=== PATIENT | female | born 1990 | race Caucasian/White ===

== ENCOUNTER 2018-09-29 13:18 | Emergency (ER) | payer MEDICAID ==
[2018-09-29 13:29] VITALS: BP 134/83; PULSE 67; RESP 18; TEMP 98.7
[2018-09-29] MEDS ORDERED: METOCLOPRAMIDE 5 MG/ML 2 ML VIAL IM PRN (13:55)
--- NOTE | 2018-09-29 14:14 | ED ---
General Adult HPI - General Chief complaint: Nausea/Vomiting/Diarrhea Stated complaint: nausea Time Seen by Provider: 09/29/18 13:25 Source: patient, RN notes reviewed Mode of arrival: ambulatory Limitations: no limitations - History of Present Illness Initial comments: This is a 28-year-old female who comes in complaining of nausea and vomiting. Patient states the vomiting stopped after patient states the nausea and vomiting started 1 week ago after about 3 days the nausea continued but the vomiting stopped. Patient denies any diarrhea. Patient denies any abdominal pain. Patient states she has a little bit of left lower back pain but not much. Patient states that she did start clindamycin the day after her vomiting started and wonders if the clindamycin is making her nauseous. Patient denies any fever or chills. Patient denies any chest pain difficulty breathing shortness of breath. - Related Data Home Medications Medication Instructions Recorded Confirmed Cetirizine HCl [Zyrtec] 10 mg PO DAILY 09/29/18 09/29/18 Clindamycin HCl 300 mg PO TID 09/29/18 09/29/18 Fluticasone Nasal [place] [Flonase 2 spr EA NOSTRIL DAILY PRN 09/29/18 09/29/18 Nasal [place]] Naproxen 500 mg PO Q12H PRN 09/29/18 09/29/18 Ondansetron HCl [Zofran] 8 mg PO Q8H PRN 09/29/18 09/29/18 Allergies Allergy/AdvReac Type Severity Reaction Status Date / Time No Known Allergies Allergy Verified 09/29/18 13:48 Review of Systems ROS Statement: Those systems with pertinent positive or pertinent negative responses have been documented in the HPI. ROS Other: All systems not noted in ROS Statement are negative. Past Medical History Past Medical History: No Reported History History of Any Multi-Drug Resistant Organisms: None Reported Past Surgical History: No Surgical Hx Reported Past Psychological History: No Psychological Hx Reported Smoking Status: Never smoker Past Alcohol Use History: None Reported Past Drug Use History: None Reported General Exam - General Exam Comments Initial Comments: GENERAL: Patient is well-developed and well-nourished. Patient is nontoxic and well- hydrated and is in mild distress. ENT: Neck is soft and supple. No significant lymphadenopathy is noted. Oropharynx is clear. Moist mucous membranes. Neck has full range of motion without eliciting any pain. EYES: The sclera were anicteric and conjunctiva were pink and moist. Extraocular movements were intact and pupils were equal round and reactive to light. Eyelids were unremarkable. PULMONARY: Unlabored respirations. Good breath sounds bilaterally. No audible rales rhonchi or wheezing was noted. CARDIOVASCULAR: There is a regular rate and rhythm without any murmurs gallops or rubs. ABDOMEN: Soft and nontender with normal bowel sounds. SKIN: Skin is clear with no lesions or rashes and otherwise unremarkable. NEUROLOGIC: Patient is alert and oriented x3. Cranial nerves II through XII are grossly intact. Motor and sensory are also intact. Normal speech, volume and content. Symmetrical smile. MUSCULOSKELETAL: Normal extremities with adequate strength and full range of motion. LYMPHATICS: No significant lymphadenopathy is noted PSYCHIATRIC: Normal psychiatric evaluation. Limitations: no limitations Course Vital Signs 09/29/18 13:25 Temperature 98.7 F Pulse Rate 67 Respiratory 18 Rate Blood Pressure 134/83 O2 Sat by Pulse 98 Oximetry Medical Decision Making - Medical Decision Making I will back into room to reevaluate the patient she stated that she did not want the nausea shocked is currently she is not that nauseous and she took a Zofran before she came. Patient has continued to be pain-free. - Lab Data Lab Results 09/29/18 09/29/18 Range/Units 14:04 14:04 Urine Color Light Yellow Urine Appearance Clear (Clear) Urine pH 7.5 (5.0-8.0) Ur Specific [place] 1.008 (1.001-1.035) Urine Protein Negative (Negative) Urine Glucose (UA) Negative (Negative) Urine Ketones Negative (Negative) Urine Blood Trace H (Negative) Urine Nitrite Negative (Negative) Urine Bilirubin Negative (Negative) Urine Urobilinogen <2.0 (<2.0) mg/dL Ur Leukocyte Esterase Negative (Negative) Urine RBC <1 (0-5) /hpf Urine WBC 1 (0-5) /hpf Ur Squamous Epith Cells 3 (0-4) /hpf Urine Sperm Rare (None) /hpf Urine HCG, Qual Not Detected (Not Detectd) Disposition Clinical Impression: Nausea, Medication adverse effect Disposition: HOME SELF-CARE Condition: Good Instructions (If sedation given, give patient instructions): Acute Nausea and Vomiting (ED) Additional Instructions: Patient should stop clindamycin. Is patient prescribed a controlled substance at d/c from ED?: No Referrals: Paris Hernandez MD [Primary Care Provider] - 1-2 days Time of Disposition: 14:49
[2018-09-29 14:26] LABS: Appearance,Urine Clear (Clear); Bilirubin,Urine Negative (Negative); Blood,Urine Trace (Negative); Color,Urine Light Yellow; Glucose,Urine (UA) Negative (Negative); Ketones,Urine Negative (Negative); Leukocyte Esterase,Urine Negative (Negative); Nitrite,Urine Negative (Negative); PH, Urine 7.5 (5.0-8.0); Protein,Urine Negative (Negative); RBC,Urine <1 /hpf (0-5); Specific Gravity,Urine 1.008 (1.001-1.035); Sperm,Urine Rare /hpf; Squamous Epithelial Cell,Urine 3 /hpf (0-4); Urobilinogen,Urine <2.0 mg/dL (<2.0); WBC,Urine 1 /hpf (0-5)
== END 2018-09-29 14:54 | disposition home or self-care (01) ==
LOC: EC 13:18
DX: R11.0 Nausea (principal); T36.8X5A Adverse effect of other systemic antibiotics, initial encounter; M54.5 Low back pain; Z79.899 Other long term (current) drug therapy
CPT/HCPCS: 81001; 81025; 99284; 96372; J2765

== ENCOUNTER 2018-10-02 09:58 | Emergency (ER) | payer MEDICAID ==
[2018-10-02 10:02] VITALS: RESP 16
[2018-10-02] MEDS ORDERED: SODIUM CHLORIDE 0.9% 1,000 ML IV STA (10:09)
[2018-10-02] MEDS ORDERED: METOCLOPRAMIDE 5 MG/ML 2 ML VIAL IVP STA (10:28)
[2018-10-02] MEDS ORDERED: diphenhydrAMINE 50 MG/ML 1 ML VIAL IVP STA (10:28)
[2018-10-02] MEDS ORDERED: FAMOTIDINE 20 MG/2 ML VIAL IV STA (10:28)
--- NOTE | 2018-10-02 10:30 | ED ---
Nausea/Vomiting/Diarrhea HPI - General Chief complaint: Nausea/Vomiting/Diarrhea Stated complaint: nausea Time Seen by Provider: 10/02/18 10:09 Source: patient, RN notes reviewed Mode of arrival: ambulatory Limitations: no limitations - History of Present Illness Initial comments: 28-year-old female presents emergency Department chief complaint of nausea. Patient did have initially have nausea vomiting started earlier in the week. Patient states that she does something that she ate or related to the clindamycin she was taking. She has stopped the medication and she's been taking Zofran but continues to have nausea. It is worsened anytime she tries to eat but has no abdominal pain including right upper quadrant. Denies any diarrhea, constipation, hematemesis or coffee-ground emesis. Patient has no current symptoms of GERD but did while she was taking antibiotics. - Related Data Home Medications Medication Instructions Recorded Confirmed Cetirizine HCl [Zyrtec] 10 mg PO DAILY 09/29/18 09/29/18 Clindamycin HCl 300 mg PO TID 09/29/18 09/29/18 Fluticasone Nasal [place] [Flonase 2 spr EA NOSTRIL DAILY PRN 09/29/18 09/29/18 Nasal [place]] Naproxen 500 mg PO Q12H PRN 09/29/18 09/29/18 Ondansetron HCl [Zofran] 8 mg PO Q8H PRN 09/29/18 09/29/18 Previous Rx's Medication Instructions Recorded Metoclopramide [Reglan] 10 mg PO TID PRN #15 tab 10/02/18 Omeprazole [PriLOSEC] 20 mg PO AC-BRKFST #14 cap 10/02/18 Allergies Allergy/AdvReac Type Severity Reaction Status Date / Time No Known Allergies Allergy Verified 10/02/18 10:02 Review of Systems ROS Statement: Those systems with pertinent positive or pertinent negative responses have been documented in the HPI. ROS Other: All systems not noted in ROS Statement are negative. Past Medical History Past Medical History: No Reported History History of Any Multi-Drug Resistant Organisms: None Reported Past Surgical History: No Surgical Hx Reported Past Psychological History: No Psychological Hx Reported Smoking Status: Never smoker Past Alcohol Use History: None Reported Past Drug Use History: None Reported General Exam Limitations: no limitations General appearance: alert, in no apparent distress Head exam: Present: atraumatic, normocephalic, normal inspection Eye exam: Present: normal appearance, PERRL, EOMI. Absent: scleral icterus, conjunctival injection, periorbital swelling ENT exam: Present: normal exam, normal oropharynx, mucous membranes moist Neck exam: Present: normal inspection, full ROM. Absent: tenderness, meningismus, lymphadenopathy Respiratory exam: Present: normal lung sounds bilaterally. Absent: respiratory distress, wheezes, rales, rhonchi, stridor Cardiovascular Exam: Present: regular rate, normal rhythm, normal heart sounds. Absent: systolic murmur, diastolic murmur, rubs, gallop, clicks GI/Abdominal exam: Present: soft, normal bowel sounds. Absent: distended, tenderness, guarding, rebound, rigid Back exam: Absent: CVA tenderness (R), CVA tenderness (L) Neurological exam: Present: alert, oriented X3, CN II-XII intact Skin exam: Present: warm, dry, intact, normal color. Absent: rash Course Vital Signs 10/02/18 10:00 Temperature 98.7 F Pulse Rate 78 Respiratory 16 Rate Blood Pressure 136/71 O2 Sat by Pulse 96 Oximetry - Reevaluation(s) Reevaluation #1: 10/02/18 11:13 Patient updated on results and reevaluated patient states her nausea has improved. Medical Decision Making - Medical Decision Making 28-year-old female presented for ongoing nausea. Patient lab work which is unremarkable she feels improved after Reglan and Benadryl. I do feel this is underlying nausea from gastritis or GERD. Patient will be discharged on omeprazole, Reglan. She will follow-up with her PCP if no improvement she should have an EGD. Patient agrees this plan. - Lab Data Result diagrams: 10/02/18 10:36 10/02/18 10:36 Lab Results 10/02/18 10/02/18 10/02/18 Range/Units 10:33 10:33 10:36 WBC 9.4 (3.8-10.6) k/uL RBC 4.75 (3.80-5.40) m/uL Hgb 14.7 (11.4-16.0) gm/dL Hct 43.4 (34.0-46.0) % MCV 91.3 (80.0-100.0) fL MCH 31.0 (25.0-35.0) pg MCHC 33.9 (31.0-37.0) g/dL RDW 13.5 (11.5-15.5) % Plt Count 344 (150-450) k/uL Neutrophils % 74 % Lymphocytes % 19 % Monocytes % 5 % Eosinophils % 1 % Basophils % 1 % Neutrophils # 6.9 (1.3-7.7) k/uL Lymphocytes # 1.7 (1.0-4.8) k/uL Monocytes # 0.4 (0-1.0) k/uL Eosinophils # 0.1 (0-0.7) k/uL Basophils # 0.1 (0-0.2) k/uL Sodium (137-145) mmol/L Potassium (3.5-5.1) mmol/L Chloride (98-107) mmol/L Carbon Dioxide (22-30) mmol/L Anion Gap mmol/L BUN (7-17) mg/dL Creatinine (0.52-1.04) mg/dL Est GFR (CKD-EPI)AfAm (>60 ml/min/1.73 sqM) Est GFR (CKD-EPI)NonAf (>60 ml/min/1.73 sqM) Glucose (74-99) mg/dL Calcium (8.4-10.2) mg/dL Total Bilirubin (0.2-1.3) mg/dL AST (14-36) U/L ALT (9-52) U/L Alkaline Phosphatase (38-126) U/L Total Protein (6.3-8.2) g/dL Albumin (3.5-5.0) g/dL Lipase (23-300) U/L Urine Color Yellow Urine Appearance Clear (Clear) Urine pH 7.5 (5.0-8.0) Ur Specific [place] 1.019 (1.001-1.035) Urine Protein Negative (Negative) Urine Glucose (UA) Negative (Negative) Urine Ketones Negative (Negative) Urine Blood Negative (Negative) Urine Nitrite Negative (Negative) Urine Bilirubin Negative (Negative) Urine Urobilinogen <2.0 (<2.0) mg/dL Ur Leukocyte Esterase Negative (Negative) Urine HCG, Qual Not Detected (Not Detectd) 10/02/18 Range/Units 10:36 WBC (3.8-10.6) k/uL RBC (3.80-5.40) m/uL Hgb (11.4-16.0) gm/dL Hct (34.0-46.0) % MCV (80.0-100.0) fL MCH (25.0-35.0) pg MCHC (31.0-37.0) g/dL RDW (11.5-15.5) % Plt Count (150-450) k/uL Neutrophils % % Lymphocytes % % Monocytes % % Eosinophils % % Basophils % % Neutrophils # (1.3-7.7) k/uL Lymphocytes # (1.0-4.8) k/uL Monocytes # (0-1.0) k/uL Eosinophils # (0-0.7) k/uL Basophils # (0-0.2) k/uL Sodium 142 (137-145) mmol/L Potassium 4.5 (3.5-5.1) mmol/L Chloride 108 H (98-107) mmol/L Carbon Dioxide 23 (22-30) mmol/L Anion Gap 11 mmol/L BUN 12 (7-17) mg/dL Creatinine 0.83 (0.52-1.04) mg/dL Est GFR (CKD-EPI)AfAm >90 (>60 ml/min/1.73 sqM) Est GFR (CKD-EPI)NonAf >90 (>60 ml/min/1.73 sqM) Glucose 89 (74-99) mg/dL Calcium 10.4 H (8.4-10.2) mg/dL Total Bilirubin 0.9 (0.2-1.3) mg/dL AST 20 (14-36) U/L ALT 20 (9-52) U/L Alkaline Phosphatase 73 (38-126) U/L Total Protein 7.2 (6.3-8.2) g/dL Albumin 4.3 (3.5-5.0) g/dL Lipase 73 (23-300) U/L Urine Color Urine Appearance (Clear) Urine pH (5.0-8.0) Ur Specific [place] (1.001-1.035) Urine Protein (Negative) Urine Glucose (UA) (Negative) Urine Ketones (Negative) Urine Blood (Negative) Urine Nitrite (Negative) Urine Bilirubin (Negative) Urine Urobilinogen (<2.0) mg/dL Ur Leukocyte Esterase (Negative) Urine HCG, Qual (Not Detectd) Disposition Clinical Impression: Nausea, Gastritis Disposition: HOME SELF-CARE Condition: Stable Instructions (If sedation given, give patient instructions): Gastritis (ED), Acute Nausea and Vomiting (ED) Additional Instructions: Please return to the Emergency Department if symptoms worsen or any other concerns. Prescriptions: Omeprazole [PriLOSEC] 20 mg PO AC-BRKFST #14 cap Metoclopramide [Reglan] 10 mg PO TID PRN #15 tab PRN Reason: GERD Is patient prescribed a controlled substance at d/c from ED?: No Referrals: Paris Hernandez MD [Primary Care Provider] - 1-2 days Time of Disposition: 11:15
[2018-10-02 10:57] LABS: Appearance,Urine Clear (Clear); Bilirubin,Urine Negative (Negative); Blood,Urine Negative (Negative); Color,Urine Yellow; Glucose,Urine (UA) Negative (Negative); Ketones,Urine Negative (Negative); Leukocyte Esterase,Urine Negative (Negative); Nitrite,Urine Negative (Negative); PH, Urine 7.5 (5.0-8.0); Protein,Urine Negative (Negative); Specific Gravity,Urine 1.019 (1.001-1.035); Urobilinogen,Urine <2.0 mg/dL (<2.0)
[2018-10-02 10:59] LABS: Basophils # (A) 0.1 k/uL (0-0.2); Basophils % (A) 1 %; Eosinophils # (A) 0.1 k/uL (0-0.7); Eosinophils % (A) 1 %; HCT 43.4 % (34.0-46.0); HGB 14.7 gm/dL (11.4-16.0); Lymphocytes # (A) 1.7 k/uL (1.0-4.8); Lymphocytes % (A) 19 %; MCHC 33.9 g/dL (31.0-37.0); MCV 91.3 fL (80.0-100.0); Mean Platelet Volume 7.8; Monocytes # (A) 0.4 k/uL (0-1.0); Monocytes % (A) 5 %; Neutrophils # (A) 6.9 k/uL (1.3-7.7); Neutrophils % (A) 74 %; Platelet Count 344 k/uL (150-450); RBC 4.75 m/uL (3.80-5.40); RDW 13.5 % (11.5-15.5); WBC 9.4 k/uL (3.8-10.6)
[2018-10-02 11:06] LABS: ALT 20 U/L (9-52); AST 20 U/L (14-36); African American GFR (CKD) >90 (>60 ml/min/1.73 sqM); Albumin 4.3 g/dL (3.5-5.0); Alkaline Phosphatase 73 U/L (38-126); Anion Gap 11 mmol/L; Blood Urea Nitrogen 12 mg/dL (7-17); Calcium 10.4 mg/dL (8.4-10.2); Carbon Dioxide 23 mmol/L (22-30); Chloride 108 mmol/L (98-107); Glucose 89 mg/dL (74-99); Lipase 73 U/L (23-300); Potassium 4.5 mmol/L (3.5-5.1); Sodium 142 mmol/L (137-145); Total Bilirubin 0.9 mg/dL (0.2-1.3); Total Protein 7.2 g/dL (6.3-8.2)
[2018-10-02 11:27] VITALS: BP 128/70; PULSE 74; TEMP 97.6
== END 2018-10-02 11:26 | disposition home or self-care (01) ==
LOC: EC 09:58
DX: K29.70 Gastritis, unspecified, without bleeding (principal); Z79.899 Other long term (current) drug therapy
CPT/HCPCS: 36415; 80053; 83690; 85025; 81003; 81025; 99283; 96374; 96375 ×2; 96361; J1200; J2765

== ENCOUNTER 2018-12-02 17:34 | Emergency (ER) | payer MEDICAID ==
[2018-12-02 17:47] VITALS: RESP 18
[2018-12-02 18:44] LABS: Basophils # (A) 0.1 k/uL (0-0.2); Basophils % (A) 1 %; Eosinophils # (A) 0.3 k/uL (0-0.7); Eosinophils % (A) 3 %; HCT 44.4 % (34.0-46.0); HGB 15.2 gm/dL (11.4-16.0); Lymphocytes # (A) 2.8 k/uL (1.0-4.8); Lymphocytes % (A) 27 %; MCH 31.3 pg (25.0-35.0); MCHC 34.2 g/dL (31.0-37.0); Mean Platelet Volume 7.5; Monocytes # (A) 0.5 k/uL (0-1.0); Monocytes % (A) 5 %; Neutrophils # (A) 6.6 k/uL (1.3-7.7); Neutrophils % (A) 63 %; Platelet Count 396 k/uL (150-450); RBC 4.86 m/uL (3.80-5.40); WBC 10.6 k/uL (3.8-10.6)
--- NOTE | 2018-12-02 18:46 | XR ---
EXAMINATION TYPE: XR chest 2V DATE OF EXAM: 12/02/2018 COMPARISON: NONE HISTORY: Cough and chest pain TECHNIQUE: Frontal and lateral views of the chest are obtained. FINDINGS: Heart and mediastinum are normal. Lungs are clear. Diaphragm is normal. Bony thorax appear s normal. IMPRESSION: Normal chest.
[2018-12-02 18:47] LABS: Appearance,Urine Clear (Clear); Bacteria,Urine Rare /hpf; Bilirubin,Urine Negative (Negative); Blood,Urine Negative (Negative); Color,Urine Yellow; Glucose,Urine (UA) Negative (Negative); Ketones,Urine Negative (Negative); Leukocyte Esterase,Urine Trace (Negative); Mucus,Urine Many /hpf; Nitrite,Urine Negative (Negative); PH, Urine 5.5 (5.0-8.0); Protein,Urine Trace (Negative); RBC,Urine 1 /hpf (0-5); Specific Gravity,Urine 1.038 (1.001-1.035); Squamous Epithelial Cell,Urine 7 /hpf (0-4); WBC,Urine 6 /hpf (0-5)
[2018-12-02 18:47] LABS: MCV 91.3 fL (80.0-100.0)
[2018-12-02 18:52] LABS: ALT 23 U/L (9-52); AST 26 U/L (14-36); African American GFR (CKD) >90 (>60 ml/min/1.73 sqM); Albumin 4.6 g/dL (3.5-5.0); Alkaline Phosphatase 95 U/L (38-126); Anion Gap 13 mmol/L; Blood Urea Nitrogen 12 mg/dL (7-17); Calcium 10.5 mg/dL (8.4-10.2); Carbon Dioxide 22 mmol/L (22-30); Chloride 107 mmol/L (98-107); Glucose 86 mg/dL (74-99); Sodium 142 mmol/L (137-145); Total Bilirubin 0.5 mg/dL (0.2-1.3); Total Protein 7.8 g/dL (6.3-8.2)
[2018-12-02] MEDS ORDERED: KETOROLAC 30 MG/ML 1 ML VIAL IVP STA (19:29)
--- NOTE | 2018-12-02 19:39 | US ---
EXAMINATION TYPE: US gallbladder DATE OF EXAM: 12/02/2018 COMPARISON: NONE CLINICAL HISTORY: Pain. Nausea and decreased appetite for 2 weeks. Right upper back pain radiating to RUQ EXAM MEASUREMENTS: Liver Length: 15.0 cm Gallbladder Wall: 0.4 cm CBD: 0.3 cm Right Kidney: 10.4 x 5.7 x 5.3 cm Technical limitations due to patient's body habitus and large amount of overlying bowel content Pancreas: Obscured by bowel gas Liver: only visualized intercostally, appears wnl as visualized Gallbladder: only visualized intercostally, appears contracted Evidence for sonographic Herbert's sign: no CBD: limited evaluation Right Kidney: no evidence of hydronephrosis IMPRESSION: Negative exam. No gallstones or dilated ducts. No focal liver defect.
--- NOTE | 2018-12-02 20:48 | ED ---
Abdominal Pain HPI - General Chief Complaint: Abdominal Pain Stated Complaint: nausea/abdominal & back pain Time Seen by Provider: 12/02/18 17:50 Source: patient Mode of arrival: ambulatory Limitations: no limitations - History of Present Illness Initial Comments: The patient is a 28 year old female who presents the emergency room with reported right upper quadrant abdominal pain and right scapular pain. The patient reports to a several week history of nausea with right upper quadrant pain. She saw her primary care physician in office who thought that maybe it was due to her gallbladder. He did order a gallbladder ultrasound which is to be performed next week. He did provide the patient with a prescription for Zofran. She states she's been taking the medications as directed which has helped her nausea. Today her pain became severe. She also had referred pain to her right scapula. It is worse with movement and better with rest. She did not take any medications at home for her symptoms. She denies any hematemesis. Denies any diarrhea, constipation, melanotic stools or hematochezia. She denies any changes in her urination to include dysuria, hematuria or difficulty voiding. No abnormal vaginal bleeding or discharge. States that she is currently spotting. She does have an IUD and states that she will spot but has no normal menstrual cycles. She has ripping or tearing sensation to her back. Denies any unilateral numbness or weakness. No headaches or visual changes. No reported fevers or chills. There are no other alleviating, precipitating or modifying factors - Related Data Home Medications Medication Instructions Recorded Confirmed Cetirizine HCl [Zyrtec] 10 mg PO DAILY 09/29/18 12/02/18 Fluticasone Nasal [place] [Flonase 2 spr EA NOSTRIL DAILY PRN 09/29/18 12/02/18 Nasal [place]] Naproxen 500 mg PO Q12H PRN 09/29/18 12/02/18 Allergies Allergy/AdvReac Type Severity Reaction Status Date / Time No Known Allergies Allergy Verified 12/02/18 17:47 Review of Systems ROS Statement: Those systems with pertinent positive or pertinent negative responses have been documented in the HPI. ROS Other: All systems not noted in ROS Statement are negative. Past Medical History Past Medical History: No Reported History History of Any Multi-Drug Resistant Organisms: None Reported Past Surgical History: No Surgical Hx Reported Past Psychological History: No Psychological Hx Reported Smoking Status: Never smoker Past Alcohol Use History: None Reported Past Drug Use History: None Reported General Exam Limitations: no limitations General appearance: alert, in no apparent distress Head exam: Present: atraumatic, normocephalic, normal inspection Eye exam: Present: normal appearance, PERRL, EOMI. Absent: scleral icterus, conjunctival injection, periorbital swelling ENT exam: Present: normal exam, mucous membranes moist Neck exam: Present: normal inspection. Absent: tenderness, meningismus, lymphadenopathy Respiratory exam: Present: normal lung sounds bilaterally. Absent: respiratory distress, wheezes, rales, rhonchi, stridor Cardiovascular Exam: Present: regular rate, normal rhythm, normal heart sounds. Absent: systolic murmur, diastolic murmur, rubs, gallop, clicks GI/Abdominal exam: Present: soft, tenderness (right flank/chest wall. Reproducible with movement of right upper extremity), normal bowel sounds. Absent: distended, guarding, rebound, rigid Extremities exam: Present: normal inspection, full ROM, normal capillary refill. Absent: tenderness, pedal edema, joint swelling, calf tenderness Back exam: Present: normal inspection Neurological exam: Present: alert, oriented X3, CN II-XII intact Psychiatric exam: Present: normal affect, normal mood Skin exam: Present: warm, dry, intact, normal color. Absent: rash Course Vital Signs 12/02/18 12/02/18 17:45 20:52 Temperature 98.1 F 97.5 F L Pulse Rate 79 71 Respiratory 18 18 Rate Blood Pressure 117/56 123/83 O2 Sat by Pulse 98 97 Oximetry Medical Decision Making - Medical Decision Making Upon arrival the patient was placed in room 14. She was hooked up to continuous pulse ox and cardiac monitoring. The patient does have IV access established. She is given 15 mg of Toradol IV. I did recommend laboratory studies as well as a GB ultrasound. Patient does agree to this. Studies were performed. Lab work and ultrasound of the gallbladder are unremarkable. Chest x-ray had also been performed because the patient's reported scapular pain. No signs of pneumothoraces on x-ray. I discussed the diagnosis, differential treatment options. I did recommend a CT of the patient's abdomen and pelvis however the patient refused. Repetitive abdominal exams demonstrated no peritoneal signs. At this time the patient will be discharged home and needs to follow-up with her primary care physician for further workup. I did inform her that she will need a HIDA scan and an EGD. I did provide her with Dr. Hood contact information. She states that she does have Zofran at home for her nausea. If she has any new or worsening symptoms she should return to the emergency room. The patient was in agreement with the treatment plan and she is discharged in stable condition - Lab Data Result diagrams: 12/02/18 18:30 12/02/18 18:30 Lab Results 12/02/18 12/02/18 12/02/18 Range/Units 18:24 18:24 18:30 WBC 10.6 (3.8-10.6) k/uL RBC 4.86 (3.80-5.40) m/uL Hgb 15.2 (11.4-16.0) gm/dL Hct 44.4 (34.0-46.0) % MCV 91.3 D (80.0-100.0) fL MCH 31.3 (25.0-35.0) pg MCHC 34.2 (31.0-37.0) g/dL RDW 12.0 (11.5-15.5) % Plt Count 396 (150-450) k/uL Neutrophils % 63 % Lymphocytes % 27 % Monocytes % 5 % Eosinophils % 3 % Basophils % 1 % Neutrophils # 6.6 (1.3-7.7) k/uL Lymphocytes # 2.8 (1.0-4.8) k/uL Monocytes # 0.5 (0-1.0) k/uL Eosinophils # 0.3 (0-0.7) k/uL Basophils # 0.1 (0-0.2) k/uL D-Dimer (<0.60) mg/L FEU Sodium (137-145) mmol/L Potassium (3.5-5.1) mmol/L Chloride (98-107) mmol/L Carbon Dioxide (22-30) mmol/L Anion Gap mmol/L BUN (7-17) mg/dL Creatinine (0.52-1.04) mg/dL Est GFR (CKD-EPI)AfAm (>60 ml/min/1.73 sqM) Est GFR (CKD-EPI)NonAf (>60 ml/min/1.73 sqM) Glucose (74-99) mg/dL Plasma Lactic Acid [place] (0.7-2.0) mmol/L Calcium (8.4-10.2) mg/dL Total Bilirubin (0.2-1.3) mg/dL AST (14-36) U/L ALT (9-52) U/L Alkaline Phosphatase (38-126) U/L Total Protein (6.3-8.2) g/dL Albumin (3.5-5.0) g/dL Lipase (23-300) U/L Urine Color Yellow Urine Appearance Clear (Clear) Urine pH 5.5 (5.0-8.0) Ur Specific [place] 1.038 H (1.001-1.035) Urine Protein Trace H (Negative) Urine Glucose (UA) Negative (Negative) Urine Ketones Negative (Negative) Urine Blood Negative (Negative) Urine Nitrite Negative (Negative) Urine Bilirubin Negative (Negative) Urine Urobilinogen 3.0 (<2.0) mg/dL Ur Leukocyte Esterase Trace H (Negative) Urine RBC 1 (0-5) /hpf Urine WBC 6 H (0-5) /hpf Ur Squamous Epith Cells 7 H (0-4) /hpf Urine Bacteria Rare H (None) /hpf Urine Mucus Many H (None) /hpf Urine HCG, Qual Not Detected (Not Detectd) 12/02/18 12/02/18 12/02/18 Range/Units 18:30 18:30 18:30 WBC (3.8-10.6) k/uL RBC (3.80-5.40) m/uL Hgb (11.4-16.0) gm/dL Hct (34.0-46.0) % MCV (80.0-100.0) fL MCH (25.0-35.0) pg MCHC (31.0-37.0) g/dL RDW (11.5-15.5) % Plt Count (150-450) k/uL Neutrophils % % Lymphocytes % % Monocytes % % Eosinophils % % Basophils % % Neutrophils # (1.3-7.7) k/uL Lymphocytes # (1.0-4.8) k/uL Monocytes # (0-1.0) k/uL Eosinophils # (0-0.7) k/uL Basophils # (0-0.2) k/uL D-Dimer 0.26 (<0.60) mg/L FEU Sodium 142 (137-145) mmol/L Potassium 4.0 (3.5-5.1) mmol/L Chloride 107 (98-107) mmol/L Carbon Dioxide 22 (22-30) mmol/L Anion Gap 13 mmol/L BUN 12 (7-17) mg/dL Creatinine 0.78 (0.52-1.04) mg/dL Est GFR (CKD-EPI)AfAm >90 (>60 ml/min/1.73 sqM) Est GFR (CKD-EPI)NonAf >90 (>60 ml/min/1.73 sqM) Glucose 86 (74-99) mg/dL Plasma Lactic Acid [place] 0.8 (0.7-2.0) mmol/L Calcium 10.5 H (8.4-10.2) mg/dL Total Bilirubin 0.5 (0.2-1.3) mg/dL AST 26 (14-36) U/L ALT 23 (9-52) U/L Alkaline Phosphatase 95 (38-126) U/L Total Protein 7.8 (6.3-8.2) g/dL Albumin 4.6 (3.5-5.0) g/dL Lipase 188 (23-300) U/L Urine Color Urine Appearance (Clear) Urine pH (5.0-8.0) Ur Specific [place] (1.001-1.035) Urine Protein (Negative) Urine Glucose (UA) (Negative) Urine Ketones (Negative) Urine Blood (Negative) Urine Nitrite (Negative) Urine Bilirubin (Negative) Urine Urobilinogen (<2.0) mg/dL Ur Leukocyte Esterase (Negative) Urine RBC (0-5) /hpf Urine WBC (0-5) /hpf Ur Squamous Epith Cells (0-4) /hpf Urine Bacteria (None) /hpf Urine Mucus (None) /hpf Urine HCG, Qual (Not Detectd) - EKG Data EKG Comments: EKG demonstrates a sinus bradycardia with a ventricular rate of 58. MA interval 160. QRS 86. QTC 404. There are no acute ST segment elevations or depressions concerning for ischemic changes. Disposition Clinical Impression: Nausea & vomiting Disposition: HOME SELF-CARE Condition: Stable Instructions (If sedation given, give patient instructions): Abdominal Pain (ED) Additional Instructions: Please follow-up with the GI doctor for further evaluation. I do recommending have an EGD and a HIDA scan performed. Return to the emergency room for any new or worsening symptoms Is patient prescribed a controlled substance at d/c from ED?: No Referrals: Jozef Givens DO [Primary Care Provider] - 1-2 days Eber Hood MD [STAFF PHYSICIAN] - 1-2 days Time of Disposition: 20:48
[2018-12-02 20:59] VITALS: BP 123/83; PULSE 71; TEMP 97.5
== END 2018-12-02 20:59 | disposition home or self-care (01) ==
LOC: EC 17:34
DX: R11.2 Nausea with vomiting, unspecified (principal); R10.11 Right upper quadrant pain; M25.511 Pain in right shoulder; Z32.02 Encounter for pregnancy test, result negative; Z79.899 Other long term (current) drug therapy; Z97.5 Presence of (intrauterine) contraceptive device
CPT/HCPCS: 36415; 93005; 85379; 80053; 83605; 83690; 85025; 81001; 81025; 71046; 76705; 99284; 96374; J1885

== ENCOUNTER → 2019-01-05 | Outpatient (CLI) | payer MEDICAID ==
--- NOTE | 2019-01-05 15:42 | NM ---
EXAMINATION TYPE: NM hepatobiliary w EF DATE OF EXAM: 01/05/2019 COMPARISON: Gallbladder ultrasound December 02, 2018 HISTORY: Pain. TECHNIQUE: After the intravenous administration of 5.2 mCi Tc 99m Mebrofenin hepatobiliary scintigrap hy is performed. Immediate images post injection. FINDINGS: There is satisfactory initial accumulation of tracer by the liver. The gallbladder is visualized wit hin 15 minutes. The small bowel activity is noted within 45 minutes. At one hour 8 ounces of oral e nsure plus is given to mimic CCK and gallbladder ejection fraction is calculated at 50 %, in the norm al range. Therefore there is no scintigraphic evidence of cystic or common bile duct obstruction to suggest acute cholecystitis or gallbladder dyskinesia. IMPRESSION: Exam is within normal limits.
== END | disposition home or self-care (01) ==
LOC: RADNMMAIN 12:50
PROVIDERS: ATTEND Nurse Practitioner
DX: R10.11 Right upper quadrant pain (principal)
CPT/HCPCS: 78226; A9537

== ENCOUNTER 2019-01-23 10:32 | Day surgery (SDC) | payer MEDICAID ==
[2019-01-20 14:32] VITALS: BMI 36.0
[~2019-01-23 10:32] MED LIST: LACTATED RINGERS 1,000 ML IV SCH
[2019-01-23 10:57] VITALS: RESP 16; TEMP 97.4
[2019-01-23] MEDS ORDERED: LIDOCAINE 1% 20 ML VIAL (10MG/ML) FOR IV START INTRADERMA ONE (11:05)
[2019-01-23] MEDS ORDERED: PROPOFOL 10 MG/ML 20 ML VIAL IV ONE (11:07)
[2019-01-23] MEDS ORDERED: fentaNYL (PF) 50 MCG/ML 2 ML AMP ONE (11:07)
[2019-01-23] MEDS ORDERED: MIDAZOLAM 2 MG/2 ML VIAL ONE (11:07)
--- NOTE | 2019-01-23 11:29 | P.PCN ---
Date of Procedure: 01/23/19 Description of Procedure: BRIEF HISTORY: Patient is a 29-year-old, pleasant, presenting for outpatient upper endoscopy for evaluation of symptoms of nausea and vomiting present for one year exacerbated with meals and new onset right upper quadrant abdominal pain occurring 4 approximately one month's duration. Ultrasound of the abdomen on all 12/02/2018 was negative for cholelithiasis with a 0.3 cm CBD. Patient has been started on omeprazole which she is taking twice daily and instructed to ezio id NSAID use. Plan is for follow-up with gastroenterology after procedure. PROCEDURE PERFORMED: Esophagogastroduodenoscopy with biopsy. PREOPERATIVE DIAGNOSIS: Epigastric abdominal pain. ESTIMATED BLOOD LOSS: Minimal. IV sedation per anesthesia. PROCEDURE: After informed consent was obtained, the patient was brought into the endoscopy unit. IV sedation was administered by Anesthesia under continuous monitoring. Initially the Olympus GIF-190 video endoscope was inserted into the mouth. Esophagus intubated without any difficulty. It was gradually advanced into the stomach and duodenum and carefully examined. The bulb and the second part of the duodenum appeared normal, with biopsy taken. The scope at this time was withdrawn to the stomach, adequately insufflated with air, and upon careful examination, mucosa of the antrum, body, cardia and the fundus appeared normal, except for scattered punctate erythema in the antrum and body suggestive of mild gastritis with biopsies taken. The scope was then withdrawn into the esophagus. The GE junction was located at 37 cm from the incisors. The esophagus appeared normal. There were no erosions or ulcerations seen and the patient tolerated the procedure well. IMPRESSION: 1. Mild gastritis antrum body, biopsied. 2. Duodenal biopsies. RECOMMENDATIONS: The findings of this examination were discussed with the patient and her boyfriend. Okay to resume diet. Okay to resume medications. Follow-up in gastroenterology clinic as previously scheduled for results of biopsies and further management.
[2019-01-23 12:01] VITALS: BP 107/70; PULSE 53
== END 2019-01-23 12:05 | disposition home or self-care (01) ==
LOC: ORWHC2ENDO 10:32
PROVIDERS: ATTEND Internal Medicine
DX: K29.50 Unspecified chronic gastritis without bleeding (principal); K29.80 Duodenitis without bleeding; K31.89 Other diseases of stomach and duodenum; K21.9 Gastro-esophageal reflux disease without esophagitis; Z79.1 Long term (current) use of non-steroidal anti-inflammatories (NSAID); Z79.899 Other long term (current) drug therapy
CPT/HCPCS: 81025; 88305; 43239; J2250; J3010; J2704

== ENCOUNTER → 2019-04-06 | Outpatient (CLI) | payer MEDICAID ==
--- NOTE | 2019-04-06 14:02 | NM ---
EXAMINATION TYPE: NM gastric emptying static DATE OF EXAM: 04/06/2019 COMPARISON: NONE HISTORY: Nausea and vomiting Following administration of 1.3 mCi Tc 99m Sulfur Colloid with 4OZ. EGG BEATERS 2 PIECES OF TOAST WIT H BUTTER AND JAM & 120 ml OF WATER, projection images of the abdomen were obtained 10 MINUTES minutes post ingestion. Patient Emptying Values 1 Hour 54 % 2 Hours 86 % 3 Hours 98 % 4 Hours 100 % Gastroesophagel reflux: None IMPRESSION: Gastric emptying: Gastric emptying is within normal limits with emptying of 100% at 4 hours. Gastroesophageal reflux: None
== END | disposition home or self-care (01) ==
LOC: RADNMMAIN 06:51
PROVIDERS: ATTEND Internal Medicine Gastroenterology
DX: E66.9 Obesity, unspecified (principal); R11.2 Nausea with vomiting, unspecified; Z68.30 Body mass index [BMI] 30.0-30.9, adult
CPT/HCPCS: 78264; A9541

== ENCOUNTER 2019-07-05 13:10 | Emergency (ER) | payer MEDICAID ==
[2019-07-05 13:33] VITALS: RESP 18; TEMP 98.4
[2019-07-05] MEDS ORDERED: METOCLOPRAMIDE 10 MG TAB PO STA (13:54)
--- NOTE | 2019-07-05 14:00 | ED ---
General Adult HPI - General Chief complaint: Nausea/Vomiting/Diarrhea Stated complaint: Nausea/Vomiting Time Seen by Provider: 07/05/19 13:36 Source: patient, RN notes reviewed, old records reviewed Mode of arrival: ambulatory Limitations: no limitations - History of Present Illness Initial comments: 29-year-old female patient presents with physician for for chronic nausea and vomiting for the chief complaint of nausea and vomiting. Patient reports that symptoms began this morning. Reports 4-5 episodes of nausea and vomiting. Patient did attempt to take Zofran however. Right after states that she threw up right after. Patient also reports that she is having dry cough for the last 2 weeks. Denies any pain or shortness of breath. Denies abdominal pain. Denies a chance of being . Denies any other complaints. Systemic: Pt denies fatigue, fever/chills, rash. Pt denies weakness, night sweats, weight loss. Neuro: Pt denies headache, visual disturbances, syncope or pre-syncope. HEENT: Pt denies ocular discharge or irritation, otalgia, rhinorrhea, pharyngitis or notable lymphadenopathy. Cardiopulmonary: Pt denies chest pain, SOB, heart palpitations, dyspnea on exertion. Abdominal/GI: Pt denies abdominal pain, n/v/d. : Pt denies dysuria, burning w/ urination, frequency/urgency. Denies new onset urinary or bowel incontinence. MSK: Pt denies myalgia, loss of strength or function in extremities. Neuro: Pt denies new onset weakness, paresthesias. - Related Data Home Medications Medication Instructions Recorded Confirmed Cetirizine HCl [Zyrtec] 10 mg PO DAILY 09/29/18 07/05/19 Fluticasone Nasal [place] [Flonase 2 spr EA NOSTRIL DAILY PRN 09/29/18 07/05/19 Nasal [place]] Albuterol Inhaler [Ventolin Hfa 2 puff INHALATION RT-Q4H PRN 07/05/19 07/05/19 Inhaler] Ondansetron HCl [Zofran] 8 mg PO Q8H PRN 07/05/19 07/05/19 Allergies Allergy/AdvReac Type Severity Reaction Status Date / Time No Known Allergies Allergy Verified 07/05/19 14:30 Review of Systems ROS Statement: Those systems with pertinent positive or pertinent negative responses have been documented in the HPI. ROS Other: All systems not noted in ROS Statement are negative. Past Medical History Past Medical History: No Reported History Additional Past Medical History / Comment(s): RECURRING N/V FOR PAsT 6 MONTHS TO A YEAR-GETTING PROGRESSIVELY WORSE. HAS MIRENA IUD History of Any Multi-Drug Resistant Organisms: None Reported Past Surgical History: No Surgical Hx Reported Past Anesthesia/Blood Transfusion Reactions: No Reported Reaction Past Psychological History: No Psychological Hx Reported Smoking Status: Never smoker Past Alcohol Use History: None Reported Past Drug Use History: None Reported - Past Family History Mother Family Medical History: No Reported History General Exam - General Exam Comments Initial Comments: Constitutional: NAD, AOX3, Pt has pleasant affect. HEENT: NC/AT, trachea midline, neck supple, no lymphadenopathy. Posterior pharynx non erythematous, without exudates. External ears appear normal, without discharge. Mucous membranes moist. Eyes PERRLA, EOM intact. There is no scleral icterus. No pallor noted. Cardiopulmonary: RRR, no murmurs, rubs or gallops, no JVD noted. Lungs CTAB in anterior and posterior greene. No peripheral edema. Abdominal exam: Abdomen soft and non-distended. Abdomen non-tender to palpation in all 4 quadrants. Bowel sounds active in LLQ. No hepatosplenomegaly. No ecchymosis Neuro: CN II-XII grossly intact. No nuchal rigidity. No raccon eyes, no cintron sign, no hemotympanum. No cervical spinal tenderness. MSK: No posterior calf tenderness bilaterally, homans sign negative bilaterally. Posterior tibialis and radial pulse +2 bilaterally. Sensation intact in upper and lower extremities. Full active ROM in upper and lower extremities, 5/5 stregnth. Limitations: no limitations Course Vital Signs 07/05/19 07/05/19 13:28 15:00 Temperature 98.4 F 98.4 F Pulse Rate 62 67 Respiratory 18 18 Rate Blood Pressure 120/68 112/69 O2 Sat by Pulse 97 99 Oximetry Medical Decision Making - Medical Decision Making 29-year-old female patient presents with physician for for chronic nausea and vomiting for the chief complaint of nausea and vomiting. Patient reports that symptoms began this morning. Reports 4-5 episodes of nausea and vomiting. Patient did attempt to take Zofran however. Right after states that she threw up right after. Patient also reports that she is having dry cough for the last 2 weeks. Denies any pain or shortness of breath. Denies abdominal pain. Denies a chance of being . Denies any other complaints. Patient fell signs are stable, afebrile. Physical exam did not display acute pathology. Patient was offered laboratory investigations IV fluids, she declined. Patient reports by mouth antinausea medication. Patient does consent however to chest x-ray due to her cough and last 2 weeks. Patient vital sign signs are stable, afebrile. Physical exam do not display acute pathology. UA hCG is negative. Chest x-ray displayed no acute process. Repeat evaluation patient is also reports that she has a headache. Reports it is behind her left eye and she does have some sensory to light. States it feels similar headaches in the past. Reports that began this morning, reports a slow insidious onset, denies thunderclap. Neurologic exam was performed and is benign. Patient reports the headache is significantly improved with Tylenol. Patient was offered and declined any intracranial imaging. Patient discharged with advised to self quarantine, follow up with PCP and will return to ER if condition worsens. Case discussed with Dr. Thomas. - Lab Data Lab Results 07/05/19 07/05/19 Range/Units 14:11 14:11 Urine Color Yellow Urine Appearance Clear (Clear) Urine pH 7.5 (5.0-8.0) Ur Specific [place] 1.019 (1.001-1.035) Urine Protein Negative (Negative) Urine Glucose (UA) Negative (Negative) Urine Ketones Negative (Negative) Urine Blood Negative (Negative) Urine Nitrite Negative (Negative) Urine Bilirubin Negative (Negative) Urine Urobilinogen <2.0 (<2.0) mg/dL Ur Leukocyte Esterase Negative (Negative) Urine HCG, Qual Not Detected (Not Detectd) Disposition Clinical Impression: Cough, Headache, Nausea and vomiting Disposition: HOME SELF-CARE Condition: Stable Instructions (If sedation given, give patient instructions): Acute Nausea and Vomiting (ED), Acute Cough (ED), Acute Headache (DC) Additional Instructions: Follow-up with primary care provider tomorrow. Advised to self quarantine for the next 2 weeks. Return to ER if condition worsens in any way. Is patient prescribed a controlled substance at d/c from ED?: No Referrals: Jozef Givens DO [Primary Care Provider] - 1-2 days
[2019-07-05 14:23] LABS: Appearance,Urine Clear (Clear); Bilirubin,Urine Negative (Negative); Blood,Urine Negative (Negative); Color,Urine Yellow; Glucose,Urine (UA) Negative (Negative); Ketones,Urine Negative (Negative); Leukocyte Esterase,Urine Negative (Negative); Nitrite,Urine Negative (Negative); PH, Urine 7.5 (5.0-8.0); Protein,Urine Negative (Negative); Specific Gravity,Urine 1.019 (1.001-1.035); Urobilinogen,Urine <2.0 mg/dL (<2.0)
--- NOTE | 2019-07-05 14:39 | XR ---
EXAMINATION TYPE: XR chest 1V DATE OF EXAM: 07/05/2019 COMPARISON: 12/02/2018 INDICATION: Cough nausea vomiting fever short of breath TECHNIQUE: Single frontal view of the chest is obtained. FINDINGS: The heart size is normal. The pulmonary vasculature is normal. The lungs are clear. IMPRESSION: 1. No acute pulmonary process.
[2019-07-05] MEDS ORDERED: ACETAMINOPHEN TAB 325 MG TAB PO STA (14:54)
[2019-07-05 15:02] VITALS: BP 112/69; PULSE 67
== END 2019-07-05 15:31 | disposition home or self-care (01) ==
LOC: EC 13:10
DX: R11.2 Nausea with vomiting, unspecified (principal); R05 Cough; R51 Headache; R19.7 Diarrhea, unspecified; Z53.29 Procedure and treatment not carried out because of patient's decision for other reasons; Z79.899 Other long term (current) drug therapy; Z97.5 Presence of (intrauterine) contraceptive device
CPT/HCPCS: 71045; 81003; 81025; 99284

== ENCOUNTER 2020-04-24 07:46 | Emergency (ER) | payer MEDICAID, OTHER ==
[2020-04-24 07:51] VITALS: RESP 18; TEMP 98.7
[2020-04-24] MEDS ORDERED: SODIUM CHLORIDE 0.9% 1,000 ML IV STA (08:13)
--- NOTE | 2020-04-24 08:14 | ED ---
Abdominal Pain HPI - General Chief Complaint: Abdominal Pain Stated Complaint: lower abd pain Time Seen by Provider: 04/24/20 08:02 Source: patient, RN notes reviewed Mode of arrival: ambulatory Limitations: no limitations - History of Present Illness Initial Comments: Patient is a 30-year-old white female who presented to the emergency department complaining of diarrhea for the last 7-8 hours, and some bright red blood per rectum. She noted that she woke up around midnight had several episodes of diarrhea with back to bed and woke up again and had a couple more bouts of diarrhea where she noted that there was some bright red blood in the toilet and then on the tissue paper after cleaning up. She denied any change in diet, alcohol consumption, nerves or anxiety. She stated that she thought she might had some bad milk which could've caused it. She denied any history of hemorrhoids, diverticulosis, diverticulitis or any previous episodes similar to the current. She denied any nausea, vomiting, constipation, abdominal pain, abdominal cramping, shortness of breath, chest pain, tenderness, fever, fatigue, chills, night sweats, unwanted weight loss/weight gain, . - Related Data Home Medications Medication Instructions Recorded Confirmed Cetirizine HCl [Zyrtec] 10 mg PO DAILY 09/29/18 07/05/19 Fluticasone Nasal [place] [Flonase 2 spr EA NOSTRIL DAILY PRN 09/29/18 07/05/19 Nasal [place]] Albuterol Inhaler [Ventolin Hfa 2 puff INHALATION RT-Q4H PRN 07/05/19 07/05/19 Inhaler] ondansetron HCL [Zofran] 8 mg PO Q8H PRN 07/05/19 07/05/19 Allergies Allergy/AdvReac Type Severity Reaction Status Date / Time No Known Allergies Allergy Verified 04/24/20 07:51 Review of Systems ROS Statement: Those systems with pertinent positive or pertinent negative responses have been documented in the HPI. ROS Other: All systems not noted in ROS Statement are negative. Past Medical History Past Medical History: No Reported History Additional Past Medical History / Comment(s): RECURRING N/V FOR PAsT 6 MONTHS TO A YEAR-GETTING PROGRESSIVELY WORSE. HAS MIRENA IUD History of Any Multi-Drug Resistant Organisms: None Reported Past Surgical History: No Surgical Hx Reported Past Anesthesia/Blood Transfusion Reactions: No Reported Reaction Past Psychological History: No Psychological Hx Reported Smoking Status: Never smoker Past Alcohol Use History: None Reported Past Drug Use History: None Reported - Past Family History Mother Family Medical History: No Reported History General Exam Limitations: no limitations General appearance: alert, in no apparent distress Head exam: Present: atraumatic, normocephalic, normal inspection Eye exam: Present: normal appearance, PERRL, EOMI. Absent: scleral icterus, conjunctival injection, periorbital swelling ENT exam: Present: normal exam, mucous membranes moist Respiratory exam: Present: normal lung sounds bilaterally. Absent: respiratory distress, wheezes, rales, rhonchi, stridor Cardiovascular Exam: Present: regular rate, normal rhythm, normal heart sounds. Absent: systolic murmur, diastolic murmur, rubs, gallop, clicks GI/Abdominal exam: Present: soft, normal bowel sounds. Absent: distended, tenderness, guarding, rebound, rigid Rectal exam: Present: other (Minimal mucus with some bright red blood noted at the external rectum.). Absent: hemorrhoids Extremities exam: Present: normal inspection, full ROM, normal capillary refill. Absent: tenderness, pedal edema, joint swelling, calf tenderness Neurological exam: Present: alert, oriented X3, CN II-XII intact Psychiatric exam: Present: normal affect, normal mood Skin exam: Present: warm, dry, intact, normal color. Absent: rash Course Vital Signs 04/24/20 04/24/20 04/24/20 07:47 08:51 09:00 Temperature 98.7 F Pulse Rate 78 68 68 Respiratory 18 18 18 Rate Blood Pressure 136/79 125/80 125/80 O2 Sat by Pulse 100 100 100 Oximetry Medical Decision Making - Medical Decision Making 30-year-old female complaining of diarrhea and some bright red blood per rectum. Labs came back unremarkable, mildly concentrated due to volume depletion. Case was discussed with Dr. Sanders. Patient tolerated labs and tests well. - Lab Data Result diagrams: 04/24/20 08:20 04/24/20 08:20 Lab Results 04/24/20 04/24/20 04/24/20 Range/Units 08:20 08:20 08:20 WBC 12.7 H (3.8-10.6) k/uL RBC 5.10 (3.80-5.40) m/uL Hgb 16.1 H (11.4-16.0) gm/dL Hct 46.4 H (34.0-46.0) % MCV 91.0 (80.0-100.0) fL MCH 31.7 (25.0-35.0) pg MCHC 34.8 (31.0-37.0) g/dL RDW 12.2 (11.5-15.5) % Plt Count 393 (150-450) k/uL MPV 7.5 Neutrophils % 73 % Lymphocytes % 18 % Monocytes % 6 % Eosinophils % 2 % Basophils % 1 % Neutrophils # 9.2 H (1.3-7.7) k/uL Lymphocytes # 2.3 (1.0-4.8) k/uL Monocytes # 0.7 (0-1.0) k/uL Eosinophils # 0.2 (0-0.7) k/uL Basophils # 0.1 (0-0.2) k/uL Sodium (137-145) mmol/L Potassium (3.5-5.1) mmol/L Chloride (98-107) mmol/L Carbon Dioxide (22-30) mmol/L Anion Gap mmol/L BUN (7-17) mg/dL Creatinine (0.52-1.04) mg/dL Est GFR (CKD-EPI)AfAm (>60 ml/min/1.73 sqM) Est GFR (CKD-EPI)NonAf (>60 ml/min/1.73 sqM) Glucose (74-99) mg/dL Calcium (8.4-10.2) mg/dL Total Bilirubin (0.2-1.3) mg/dL AST (14-36) U/L ALT (4-34) U/L Alkaline Phosphatase (38-126) U/L Total Protein (6.3-8.2) g/dL Albumin (3.5-5.0) g/dL Amylase (30-110) U/L Lipase (23-300) U/L Urine Color Yellow Urine Appearance Cloudy H (Clear) Urine pH 5.5 (5.0-8.0) Ur Specific [place] 1.022 (1.001-1.035) Urine Protein Negative (Negative) Urine Glucose (UA) Negative (Negative) Urine Ketones Negative (Negative) Urine Blood Negative (Negative) Urine Nitrite Negative (Negative) Urine Bilirubin Negative (Negative) Urine Urobilinogen <2.0 (<2.0) mg/dL Ur Leukocyte Esterase Trace H (Negative) Urine RBC 1 (0-5) /hpf Urine WBC 2 (0-5) /hpf Ur Squamous Epith Cells 4 (0-4) /hpf Urine Bacteria Rare H (None) /hpf Urine Mucus Rare H (None) /hpf Urine HCG, Qual Not Detected (Not Detectd) Stool Occult Blood (Negative) 04/24/20 04/24/20 Range/Units 08:20 08:20 WBC (3.8-10.6) k/uL RBC (3.80-5.40) m/uL Hgb (11.4-16.0) gm/dL Hct (34.0-46.0) % MCV (80.0-100.0) fL MCH (25.0-35.0) pg MCHC (31.0-37.0) g/dL RDW (11.5-15.5) % Plt Count (150-450) k/uL MPV Neutrophils % % Lymphocytes % % Monocytes % % Eosinophils % % Basophils % % Neutrophils # (1.3-7.7) k/uL Lymphocytes # (1.0-4.8) k/uL Monocytes # (0-1.0) k/uL Eosinophils # (0-0.7) k/uL Basophils # (0-0.2) k/uL Sodium 138 (137-145) mmol/L Potassium 4.3 (3.5-5.1) mmol/L Chloride 104 (98-107) mmol/L Carbon Dioxide 21 L (22-30) mmol/L Anion Gap 13 mmol/L BUN 12 (7-17) mg/dL Creatinine 0.79 (0.52-1.04) mg/dL Est GFR (CKD-EPI)AfAm >90 (>60 ml/min/1.73 sqM) Est GFR (CKD-EPI)NonAf >90 (>60 ml/min/1.73 sqM) Glucose 104 H (74-99) mg/dL Calcium 10.5 H (8.4-10.2) mg/dL Total Bilirubin 0.6 (0.2-1.3) mg/dL AST 30 (14-36) U/L ALT 48 H (4-34) U/L Alkaline Phosphatase 96 (38-126) U/L Total Protein 7.7 (6.3-8.2) g/dL Albumin 4.6 (3.5-5.0) g/dL Amylase 53 (30-110) U/L Lipase 84 (23-300) U/L Urine Color Urine Appearance (Clear) Urine pH (5.0-8.0) Ur Specific [place] (1.001-1.035) Urine Protein (Negative) Urine Glucose (UA) (Negative) Urine Ketones (Negative) Urine Blood (Negative) Urine Nitrite (Negative) Urine Bilirubin (Negative) Urine Urobilinogen (<2.0) mg/dL Ur Leukocyte Esterase (Negative) Urine RBC (0-5) /hpf Urine WBC (0-5) /hpf Ur Squamous Epith Cells (0-4) /hpf Urine Bacteria (None) /hpf Urine Mucus (None) /hpf Urine HCG, Qual (Not Detectd) Stool Occult Blood Positive H (Negative) Disposition Clinical Impression: Acute diarrhea, Dehydration Disposition: HOME SELF-CARE Condition: Stable Instructions (If sedation given, give patient instructions): Dehydration (ED), Acute Diarrhea (ED) Additional Instructions: Please return to the Emergency Department if symptoms worsen or any other concerns. Follow-up in several days if bleeding continues. Drink plenty of fluids and avoid foods that cause GI upset. Is patient prescribed a controlled substance at d/c from ED?: No Referrals: Jozef Givens DO [Primary Care Provider] - 1-2 days Time of Disposition: 09:35
[2020-04-24 08:47] LABS: Basophils # (A) 0.1 k/uL (0-0.2); Basophils % (A) 1 %; Eosinophils # (A) 0.2 k/uL (0-0.7); Eosinophils % (A) 2 %; HCT 46.4 % (34.0-46.0); HGB 16.1 gm/dL (11.4-16.0); Lymphocytes # (A) 2.3 k/uL (1.0-4.8); Lymphocytes % (A) 18 %; MCH 31.7 pg (25.0-35.0); MCHC 34.8 g/dL (31.0-37.0); Mean Platelet Volume 7.5; Monocytes # (A) 0.7 k/uL (0-1.0); Monocytes % (A) 6 %; Neutrophils # (A) 9.2 k/uL (1.3-7.7); Neutrophils % (A) 73 %; Platelet Count 393 k/uL (150-450); RDW 12.2 % (11.5-15.5); WBC 12.7 k/uL (3.8-10.6)
[2020-04-24 08:50] LABS: Appearance,Urine Cloudy (Clear); Bacteria,Urine Rare /hpf; Bilirubin,Urine Negative (Negative); Blood,Urine Negative (Negative); Color,Urine Yellow; Glucose,Urine (UA) Negative (Negative); Ketones,Urine Negative (Negative); Leukocyte Esterase,Urine Trace (Negative); Mucus,Urine Rare /hpf; Nitrite,Urine Negative (Negative); PH, Urine 5.5 (5.0-8.0); Protein,Urine Negative (Negative); RBC,Urine 1 /hpf (0-5); Specific Gravity,Urine 1.022 (1.001-1.035); Squamous Epithelial Cell,Urine 4 /hpf (0-4); Urobilinogen,Urine <2.0 mg/dL (<2.0); WBC,Urine 2 /hpf (0-5)
[2020-04-24 09:11] LABS: ALT 48 U/L (4-34); AST 30 U/L (14-36); African American GFR (CKD) >90 (>60 ml/min/1.73 sqM); Albumin 4.6 g/dL (3.5-5.0); Alkaline Phosphatase 96 U/L (38-126); Amylase 53 U/L (30-110); Anion Gap 13 mmol/L; Blood Urea Nitrogen 12 mg/dL (7-17); Calcium 10.5 mg/dL (8.4-10.2); Carbon Dioxide 21 mmol/L (22-30); Chloride 104 mmol/L (98-107); Glucose 104 mg/dL (74-99); Lipase 84 U/L (23-300); Non-African American GFR(CKD) >90 (>60 ml/min/1.73 sqM); Potassium 4.3 mmol/L (3.5-5.1); Sodium 138 mmol/L (137-145); Total Bilirubin 0.6 mg/dL (0.2-1.3); Total Protein 7.7 g/dL (6.3-8.2)
[2020-04-24 09:56] VITALS: BP 117/71; PULSE 72
== END 2020-04-24 09:48 | disposition home or self-care (01) ==
LOC: EC 07:46
DX: R10.30 Lower abdominal pain, unspecified (principal); R19.7 Diarrhea, unspecified; E86.0 Dehydration; K62.5 Hemorrhage of anus and rectum
CPT/HCPCS: 36415; 80053; 81001; 81025; 82150; 82272; 83690; 85025; 86850; 86900; 86901; 96360; 99284

== ENCOUNTER 2020-12-02 00:53 | Emergency (ER) | payer OTHER ==
[2020-12-02 01:01] VITALS: BP 104/61; PULSE 75; RESP 16; TEMP 97.6
[2020-12-02] MEDS ORDERED: MECLIZINE 12.5 MG TAB PO STA (01:15)
[2020-12-02] MEDS ORDERED: PSEUDOEPHEDRINE 12HR 120 MG TABLET.ER PO STA (01:15)
--- NOTE | 2020-12-02 01:18 | ED ---
General Adult HPI - General Chief complaint: Dizziness Stated complaint: Nausea, dizziness Time Seen by Provider: 12/02/20 01:04 Source: patient Mode of arrival: ambulatory Limitations: no limitations - History of Present Illness Initial comments: 30-year-old female patient presents to the emergency department today for evaluation of dizziness and ear pain. States her last couple of weeks she is been having pain and pressure to the bilateral ears. States she's been having intermittent dizziness but today is more constant. States it worsens with mo vement of her head or lying down flat. States it does improve with sitting up. Denies any headache, blurred vision, double vision. States she has been nauseated but has not vomited. Denies numbness, tingling, weakness to her extremities. States she has had frequent ear infections in the past. Denies any current fever or chills. States she has had nasal congestion and drainage for the last couple of weeks as well. Has been taking Mucinex and Zyrtec as well as nasal spray. Denies chance of . - Related Data Home Medications Medication Instructions Recorded Confirmed Cetirizine HCl [Zyrtec] 10 mg PO DAILY 09/29/18 07/05/19 Fluticasone Nasal [place] [Flonase 2 spr EA NOSTRIL DAILY PRN 09/29/18 07/05/19 Nasal [place]] Albuterol Inhaler [Ventolin Hfa 2 puff INHALATION RT-Q4H PRN 07/05/19 07/05/19 Inhaler] ondansetron HCL [Zofran] 8 mg PO Q8H PRN 07/05/19 07/05/19 Previous Rx's Medication Instructions Recorded Meclizine [Antivert] 25 mg PO TID #15 tab 12/02/20 Prochlorperazine [Compazine] 5 - 10 mg PO Q6HR #20 tab 12/02/20 Pseudoephedrine 12Hr [Sudafed 12 120 mg PO Q12HR #10 tab 12/02/20 Hour] Allergies Allergy/AdvReac Type Severity Reaction Status Date / Time No Known Allergies Allergy Verified 12/02/20 00:57 Review of Systems ROS Statement: Those systems with pertinent positive or pertinent negative responses have been documented in the HPI. ROS Other: All systems not noted in ROS Statement are negative. Past Medical History Past Medical History: No Reported History Additional Past Medical History / Comment(s): RECURRING N/V FOR PAsT 6 MONTHS TO A YEAR-GETTING PROGRESSIVELY WORSE. HAS MIRENA IUD History of Any Multi-Drug Resistant Organisms: None Reported Past Surgical History: No Surgical Hx Reported Past Anesthesia/Blood Transfusion Reactions: No Reported Reaction Past Psychological History: No Psychological Hx Reported Smoking Status: Never smoker Past Alcohol Use History: None Reported Past Drug Use History: None Reported - Past Family History Mother Family Medical History: No Reported History General Exam Limitations: no limitations General appearance: alert, in no apparent distress, other (This is a well- developed, well-nourished adult female patient in no acute distress. Vital signs upon presentation are temperature 97.6F, pulse 75, respirations 16, blood pressure 104/61, pulse ox 98% on room air.) Eye exam: Present: normal appearance, PERRL, EOMI. Absent: scleral icterus, conjunctival injection, nystagmus, periorbital swelling ENT exam: Present: normal exam, normal oropharynx, mucous membranes moist. Absent: TM's normal bilaterally (Serous otitis media) Neck exam: Present: normal inspection, full ROM. Absent: tenderness, meningismus, lymphadenopathy Respiratory exam: Present: normal lung sounds bilaterally. Absent: respiratory distress, wheezes, rales, rhonchi, stridor Cardiovascular Exam: Present: regular rate, normal rhythm, normal heart sounds. Absent: systolic murmur, diastolic murmur, rubs, gallop, clicks GI/Abdominal exam: Present: soft, normal bowel sounds. Absent: distended, tenderness, guarding, rebound, rigid Neurological exam: Present: alert, oriented X3, CN II-XII intact, other (Strength to all 4 extremity is is 5/5.) Psychiatric exam: Present: normal affect, normal mood Skin exam: Present: warm, dry, intact, normal color. Absent: rash Course Vital Signs 12/02/20 00:57 Temperature 97.6 F Pulse Rate 75 Respiratory 16 Rate Blood Pressure 104/61 O2 Sat by Pulse 98 Oximetry Medical Decision Making - Medical Decision Making 30-year-old female patient presents to the emergency department today for evaluation of bilateral ear pain and pressure as well as dizziness. Physical examination does reveal bilateral serous otitis media. She is neurologically intact no focal deficits. There is no nystagmus with eye movements. Symptoms seem consistent with labyrinthitis related to serous otitis media. She'll be given meclizine and Compazine. She is instructed to take Sudafed. She is instructed to follow-up with her primary care physician and ENT specialist as soon as possible. Return parameters were discussed in detail. She verbalizes understanding and agrees with this plan. Case discussed with my attending Dr. Jaimes. Disposition Clinical Impression: Vertigo, Serous otitis media Disposition: HOME SELF-CARE Condition: Good Instructions (If sedation given, give patient instructions): Vertigo (ED), Serous Otitis Media (ED) Additional Instructions: Take medications as directed. Follow up with the ENT specialist for further evaluation as soon as possible. Return for any new, worsening, or concerning symptoms. Prescriptions: Meclizine [Antivert] 25 mg PO TID #15 tab Prochlorperazine [Compazine] 5 - 10 mg PO Q6HR #20 tab Pseudoephedrine 12Hr [Sudafed 12 Hour] 120 mg PO Q12HR #10 tab Is patient prescribed a controlled substance at d/c from ED?: No Referrals: Jozef Givens DO [Primary Care Provider] - 1-2 days Time of Disposition: 01:18
[2020-12-02] MEDS ORDERED: PROCHLORPERAZINE 5 MG TAB PO STA (01:29)
== END 2020-12-02 01:38 | disposition home or self-care (01) ==
LOC: EC 00:53
DX: H65.93 Unspecified nonsuppurative otitis media, bilateral (principal); R42 Dizziness and giddiness
CPT/HCPCS: 99283; S0183

== ENCOUNTER 2021-05-17 09:44 | Emergency (ER) | payer OTHER ==
[2021-05-17 10:00] VITALS: RESP 18
--- NOTE | 2021-05-17 10:30 | XR ---
EXAMINATION TYPE: XR chest 2V DATE OF EXAM: 05/17/2021 COMPARISON: 07/05/2019 HISTORY: 31 years Female. STUDY INDICATION GIVEN: cough . TECHNIQUE: Frontal and lateral chest radiographs. IMPRESSION: Ill-defined opacities are seen in the retrocardiac space. Right central peribronchial thickening note d. Findings suggestive of infection in the right clinical setting. Follow-up to resolution with repea t chest radiographs recommended in 2-3 months after treatment. No pneumothorax or pleural effusion. The cardiomediastinal silhouette is normal in appearance. No acu te osseous abnormalities appreciated.
--- NOTE | 2021-05-17 10:52 | ED ---
URI HPI - General Chief Complaint: Upper Respiratory Infection Stated Complaint: Covid+, bodyaches, cough Time Seen by Provider: 05/17/21 10:00 Source: patient, RN notes reviewed Mode of arrival: ambulatory Limitations: no limitations - History of Present Illness Initial Comments: 31-year-old female presents emergency Department chief complaint of covid 19. Patient states she sits straight days states that she's not getting any better. She's had increasing cough congestion shortness of breath. Patient did have fevers and chills and bodyaches initially. Patient denies any difficulty swelling or ear pain mild on-and-off headaches no current headache. No significant GI symptoms including nausea and diarrhea constipation. - Related Data Home Medications Medication Instructions Recorded Confirmed Cetirizine HCl [Zyrtec] 10 mg PO DAILY 09/29/18 07/05/19 Fluticasone Nasal [place] [Flonase 2 spr EA NOSTRIL DAILY PRN 09/29/18 07/05/19 Nasal [place]] Albuterol Inhaler [Ventolin Hfa 2 puff INHALATION RT-Q4H PRN 07/05/19 07/05/19 Inhaler] ondansetron HCL [Zofran] 8 mg PO Q8H PRN 07/05/19 07/05/19 Previous Rx's Medication Instructions Recorded Meclizine [Antivert] 25 mg PO TID #15 tab 12/02/20 Prochlorperazine [Compazine] 5 mg PO Q6HR PRN #20 tab 12/02/20 Pseudoephedrine 12Hr [Sudafed 12 120 mg PO Q12HR PRN #20 tab 12/02/20 Hour] Benzonatate [Tessalon Perles] 200 mg PO Q8HR #15 capsule 05/17/21 Dexamethasone [Decadron] 6 mg PO DAILY #5 tablet 05/17/21 Allergies Allergy/AdvReac Type Severity Reaction Status Date / Time No Known Allergies Allergy Verified 05/17/21 09:57 Review of Systems ROS Statement: Those systems with pertinent positive or pertinent negative responses have been documented in the HPI. ROS Other: All systems not noted in ROS Statement are negative. Past Medical History Past Medical History: No Reported History Additional Past Medical History / Comment(s): RECURRING N/V FOR PAsT 6 MONTHS TO A YEAR-GETTING PROGRESSIVELY WORSE. HAS MIRENA IUD History of Any Multi-Drug Resistant Organisms: None Reported Past Surgical History: No Surgical Hx Reported Past Anesthesia/Blood Transfusion Reactions: No Reported Reaction Past Psychological History: No Psychological Hx Reported Smoking Status: Never smoker Past Alcohol Use History: None Reported Past Drug Use History: None Reported - Past Family History Mother Family Medical History: No Reported History General Exam Limitations: no limitations General appearance: alert, in no apparent distress Head exam: Present: atraumatic, normocephalic, normal inspection Eye exam: Present: normal appearance, PERRL, EOMI. Absent: scleral icterus, conjunctival injection, periorbital swelling ENT exam: Present: normal exam, mucous membranes moist Neck exam: Present: normal inspection. Absent: tenderness, meningismus, lymphadenopathy Respiratory exam: Present: normal lung sounds bilaterally. Absent: respiratory distress, wheezes, rales, rhonchi, stridor Cardiovascular Exam: Present: regular rate, normal rhythm, normal heart sounds. Absent: systolic murmur, diastolic murmur, rubs, gallop, clicks GI/Abdominal exam: Present: soft, normal bowel sounds. Absent: distended, tenderness, guarding, rebound, rigid Neurological exam: Present: alert Course Vital Signs 05/17/21 09:57 Temperature 99.1 F Pulse Rate 100 Respiratory 18 Rate Blood Pressure 114/78 O2 Sat by Pulse 94 L Oximetry Medical Decision Making - Medical Decision Making Patient was reviewed patient has a pulse ox of 94. Patient does not complain of being for breath currently. Patient is stable for discharge she'll continue monitoring her symptoms and return for worsening change in symptoms. Patient is covid 19 positive. Disposition Clinical Impression: COVID-19 Disposition: HOME SELF-CARE Condition: Stable Instructions (If sedation given, give patient instructions): Coronavirus Disease 2019 (COVID-19) Additional Instructions: Please return to the Emergency Department if symptoms worsen or any other concerns. Prescriptions: Dexamethasone [Decadron] 6 mg PO DAILY #5 tablet Benzonatate [Tessalon Perles] 200 mg PO Q8HR #15 capsule Is patient prescribed a controlled substance at d/c from ED?: No Referrals: Jozef Givens DO [Primary Care Provider] - 1-2 days Time of Disposition: 10:53
[2021-05-17 11:02] VITALS: BP 133/85; PULSE 99; TEMP 98.9
== END 2021-05-17 11:00 | disposition home or self-care (01) ==
LOC: EC 09:44
DX: U07.1 COVID-19 (principal)
CPT/HCPCS: 71046; 99284

== ENCOUNTER 2023-10-24 08:49 | Emergency (ER) | payer OTHER ==
[2023-10-24 09:01] VITALS: BP 143/80; PULSE 73; RESP 18; TEMP 98.1
[2023-10-24] MEDS: SODIUM CHLORIDE 0.9% 1,000 ML IV STA (09:57)
[2023-10-24] MEDS: KETOROLAC 15 MG/ML 1 ML VIAL IVP STA (09:57)
[2023-10-24] MEDS: ONDANSETRON 4 MG/2 ML VIAL IVP STA (09:57)
[2023-10-24 10:19] LABS: Basophils # (A) 0.1 k/uL (0-0.2); Basophils % (A) 1 %; Eosinophils # (A) 0.3 k/uL (0-0.7); Eosinophils % (A) 3 %; HCT 37.3 % (34.0-46.0); HGB 12.5 gm/dL (11.4-16.0); Lymphocytes # (A) 2.8 k/uL (1.0-4.8); Lymphocytes % (A) 27 %; MCH 29.2 pg (25.0-35.0); MCHC 33.6 g/dL (31.0-37.0); MCV 87.1 fL (80.0-100.0); Mean Platelet Volume 7.9; Monocytes # (A) 0.5 k/uL (0-1.0); Monocytes % (A) 5 %; Neutrophils # (A) 6.8 k/uL (1.3-7.7); Neutrophils % (A) 64 %; Platelet Count 406 k/uL (150-450); RBC 4.28 m/uL (3.80-5.40); WBC 10.6 k/uL (3.8-10.6)
[2023-10-24 10:28] LABS: INR 0.9 (<1.2); Partial Thromboplastin Time 25.5 sec (22.0-30.0)
--- NOTE | 2023-10-24 10:28 | ED ---
Female Urogenital HPI - General Chief complaint: Vaginal Bleeding Stated complaint: Vaginal Bleeding Time Seen by Provider: 10/24/23 09:11 Source: patient, RN notes reviewed Mode of arrival: ambulatory Limitations: no limitations - History of Present Illness Initial comments: This is a 33-year-old female who presents to the emergency department for vagin al bleeding. States that it started 4 days ago. She had her IUD out 1.5 years ago and states that she has had irregular bleeding since. Reports lower abdominal cramping with this. She does occasionally have heavy episodes of bleeding, however it usually resolves within a day and does not last this long. She has now started to become nauseous and feels dizzy. She saw Dr. Stoddard about 6 months ago and did a course of progesterone. Unsure if this was particularly helpful. MD Complaint: vaginal bleeding Last Menstrual Period: 10/20/23 - Related Data Home Medications Medication Instructions Recorded Confirmed Cetirizine HCl [Zyrtec] 10 mg PO DAILY 09/29/18 07/05/19 Fluticasone Nasal [place] [Flonase 2 spr EA NOSTRIL DAILY PRN 09/29/18 07/05/19 Nasal [place]] Albuterol Inhaler [Ventolin Hfa 2 puff INHALATION RT-Q4H PRN 07/05/19 07/05/19 Inhaler] ondansetron HCL [Zofran] 8 mg PO Q8H PRN 07/05/19 07/05/19 Previous Rx's Medication Instructions Recorded Meclizine [Antivert] 25 mg PO TID #15 tab 12/02/20 Prochlorperazine [Compazine] 5 mg PO Q6HR PRN #20 tab 12/02/20 Pseudoephedrine 12Hr [Sudafed 12 120 mg PO Q12HR PRN #20 tab 12/02/20 Hour] Benzonatate [Tessalon Perles] 200 mg PO Q8HR #15 capsule 05/17/21 dexAMETHasone [Decadron] 6 mg PO DAILY #5 tablet 05/17/21 Medroxyprogesterone Acetate 20 mg PO TID 7 Days #42 tablet 10/24/23 Naproxen Sodium 550 mg PO BID PRN #30 tablet 10/24/23 Allergies Allergy/AdvReac Type Severity Reaction Status Date / Time No Known Allergies Allergy Verified 10/24/23 09:01 Review of Systems ROS Statement: Those systems with pertinent positive or pertinent negative responses have been documented in the HPI. ROS Other: All systems not noted in ROS Statement are negative. Past Medical History Past Medical History: No Reported History Additional Past Medical History / Comment(s): RECURRING N/V FOR PAsT 6 MONTHS TO A YEAR-GETTING PROGRESSIVELY WORSE. HAS MIRENA IUD History of Any Multi-Drug Resistant Organisms: None Reported Past Surgical History: No Surgical Hx Reported Past Anesthesia/Blood Transfusion Reactions: No Reported Reaction Past Psychological History: No Psychological Hx Reported Smoking Status: Never smoker Past Alcohol Use History: None Reported Past Drug Use History: Marijuana - Past Family History Mother Family Medical History: No Reported History General Exam Limitations: no limitations General appearance: alert, in no apparent distress Head exam: Present: atraumatic, normocephalic, normal inspection Respiratory exam: Present: normal lung sounds bilaterally. Absent: respiratory distress, wheezes, rales, rhonchi, stridor Cardiovascular Exam: Present: regular rate, normal rhythm, normal heart sounds. Absent: systolic murmur, diastolic murmur, rubs, gallop, clicks GI/Abdominal exam: Present: soft, normal bowel sounds. Absent: distended, tenderness, guarding, rebound, rigid Neurological exam: Present: alert, oriented X3, CN II-XII intact Psychiatric exam: Present: normal affect, normal mood Skin exam: Present: warm, dry, intact, normal color. Absent: rash Course Vital Signs 10/24/23 08:57 Temperature 98.1 F Pulse Rate 73 Respiratory 18 Rate Blood Pressure 143/80 O2 Sat by Pulse 99 Oximetry Medical Decision Making - Medical Decision Making This is a 33 year old female who presents to the emergency department for vaginal bleeding. Was pt. sent in by a medical professional or institution? @ -No Did you speak to anyone other than the patient for history? @ -No Did you review nursing and triage notes? @ -Yes, and I agree, it is accurate with regards to the patient's symptoms. Were old charts reviewed? @ -No Differential Diagnosis? @ -Differential Vaginal Bleeding: Spontaneous , threatened , molar , ectopic , incompetent cervix, placenta previa, uterine rupture, dysfunctional uterine bleeding, hemorrhage, uterine fibroids, malignancy, coagulopathy, PID, cervicitis, adenomyosis, vaginal trauma, this is not meant to be an all- inclusive list. EKG interpreted by me (3pts min.)? @ -Not obtained X-rays interpreted by me (1pt min.)? @ -Not obtained CT interpreted by me (1pt min.)? @ -Not obtained U/S interpreted by me (1pt. min.)? @ -Transvaginal ultrasound obtained. My interpretation identifies no evidence of an ovarian torsion. What testing was considered but not performed? (CT, X-rays, U/S, labs)? Why? @ -None What meds were considered but not given? Why? @ -None Did you discuss the management of the patient with other professionals? @ -No Did you reconcile home meds? @ -No Was smoking cessation discussed for >3mins.? @ -No Was critical care preformed (if so, how long)? @ -No Were there social determinants of health that impacted care today? How? (Homelessness, low income, unemployed, alcoholism, drug addiction, transp ortation, low edu. Level, literacy, decrease access to med. care, shelter, rehab)? @ -No Was there de-escalation of care discussed even if they declined? (Discuss DNR or withdrawal of care, Hospice)? @ -No What co-morbidities impacted this encounter? (DM, HTN, Smoking, COPD, CAD, Cancer, CVA, Hep., AIDS, mental health diagnosis, sleep apnea, morbid obesity)? @ -None Was patient admitted / discharged? @ -Discharged. Lab work unremarkable, hemoglobin within normal limits. Urinalysis demonstrates blood but is negative for signs of infection. Transvaginal ultrasound demonstrates no acute process. She did have improvement in symptoms with ketorolac and Zofran. She inquired about resuming naproxen to help with pain management. Prescription for this was provided, and advised that it can also help with heavy menstrual bleeding. We also discussed an additional course of progesterone or Lysteda to see if that helps with heavy bleeding. She requested to do another course of progesterone. This was pr escribed as well. Advised follow-up with [facility] for reevaluation. Case discussed with ED attending Dr. Nam. Return precautions reviewed in depth, the patient is instructed to return to the emergency department with any new, worsening, or concerning symptoms. Patient verbalized understanding. Undiagnosed new problem with uncertain prognosis? @ -None Drug Therapy requiring intensive monitoring for toxicity (Heparin, Nitro, Insulin, Cardizem)? @ -None Were any procedures done? @ -None Diagnosis/symptom? @ -Dysfunctional uterine bleeding Acute, or Chronic, or Acute on Chronic? @ -Acute Uncomplicated (without systemic symptoms) or Complicated (systemic symptoms)? @ -Uncomplicated Side effects of treatment? @ -None Exacerbation, Progression, or Severe Exacerbation] @ -Not applicable Poses a threat to life or bodily function? @ -No - Lab Data Result diagrams: 10/24/23 09:44 10/24/23 09:44 Lab Results 10/24/23 10/24/23 10/24/23 Range/Units 09:44 09:44 09:44 WBC 10.6 (3.8-10.6) k/uL RBC 4.28 (3.80-5.40) m/uL Hgb 12.5 (11.4-16.0) gm/dL Hct 37.3 (34.0-46.0) % MCV 87.1 (80.0-100.0) fL MCH 29.2 (25.0-35.0) pg MCHC 33.6 (31.0-37.0) g/dL RDW 13.0 (11.5-15.5) % Plt Count 406 (150-450) k/uL MPV 7.9 Neutrophils % 64 % Lymphocytes % 27 % Monocytes % 5 % Eosinophils % 3 % Basophils % 1 % Neutrophils # 6.8 (1.3-7.7) k/uL Lymphocytes # 2.8 (1.0-4.8) k/uL Monocytes # 0.5 (0-1.0) k/uL Eosinophils # 0.3 (0-0.7) k/uL Basophils # 0.1 (0-0.2) k/uL PT 10.0 (10.0-12.5) sec INR 0.9 (<1.2) APTT 25.5 (22.0-30.0) sec Sodium (137-145) mmol/L Potassium (3.5-5.1) mmol/L Chloride (98-107) mmol/L Carbon Dioxide (22-30) mmol/L Anion Gap mmol/L BUN (7-17) mg/dL Creatinine (0.52-1.04) mg/dL Est GFR (CKD-EPI)AfAm (>60 ml/min/1.73 sqM) Est GFR (CKD-EPI)NonAf (>60 ml/min/1.73 sqM) Glucose (74-99) mg/dL Calcium (8.4-10.2) mg/dL Total Bilirubin (0.2-1.3) mg/dL AST (14-36) U/L ALT (4-34) U/L Alkaline Phosphatase (38-126) U/L Total Protein (6.3-8.2) g/dL Albumin (3.5-5.0) g/dL TSH (0.465-4.680) mIU/L Urine Color Light Yellow Urine Appearance Clear (Clear) Urine pH 5.5 (5.0-8.0) Ur Specific [place] 1.020 (1.001-1.035) Urine Protein Negative (Negative) Urine Glucose (UA) Negative (Negative) Urine Ketones Negative (Negative) Urine Blood Large H (Negative) Urine Nitrite Negative (Negative) Urine Bilirubin Negative (Negative) Urine Urobilinogen <2.0 (<2.0) mg/dL Ur Leukocyte Esterase Negative (Negative) Urine RBC 77 H (0-5) /hpf Urine WBC <1 (0-5) /hpf Ur Squamous Epith Cells <1 (0-4) /hpf Urine Mucus Rare H (None) /hpf Urine HCG, Qual (Not Detectd) 10/24/23 10/24/23 Range/Units 09:44 09:44 WBC (3.8-10.6) k/uL RBC (3.80-5.40) m/uL Hgb (11.4-16.0) gm/dL Hct (34.0-46.0) % MCV (80.0-100.0) fL MCH (25.0-35.0) pg MCHC (31.0-37.0) g/dL RDW (11.5-15.5) % Plt Count (150-450) k/uL MPV Neutrophils % % Lymphocytes % % Monocytes % % Eosinophils % % Basophils % % Neutrophils # (1.3-7.7) k/uL Lymphocytes # (1.0-4.8) k/uL Monocytes # (0-1.0) k/uL Eosinophils # (0-0.7) k/uL Basophils # (0-0.2) k/uL PT (10.0-12.5) sec INR (<1.2) APTT (22.0-30.0) sec Sodium 139 (137-145) mmol/L Potassium 3.9 (3.5-5.1) mmol/L Chloride 108 H (98-107) mmol/L Carbon Dioxide 24 (22-30) mmol/L Anion Gap 7 mmol/L BUN 10 (7-17) mg/dL Creatinine 0.71 (0.52-1.04) mg/dL Est GFR (CKD-EPI)AfAm >90 (>60 ml/min/1.73 sqM) Est GFR (CKD-EPI)NonAf >90 (>60 ml/min/1.73 sqM) Glucose 79 (74-99) mg/dL Calcium 9.9 (8.4-10.2) mg/dL Total Bilirubin 0.5 (0.2-1.3) mg/dL AST 20 (14-36) U/L ALT 25 (4-34) U/L Alkaline Phosphatase 68 (38-126) U/L Total Protein 6.8 (6.3-8.2) g/dL Albumin 4.1 (3.5-5.0) g/dL TSH 2.560 (0.465-4.680) mIU/L Urine Color Urine Appearance (Clear) Urine pH (5.0-8.0) Ur Specific [place] (1.001-1.035) Urine Protein (Negative) Urine Glucose (UA) (Negative) Urine Ketones (Negative) Urine Blood (Negative) Urine Nitrite (Negative) Urine Bilirubin (Negative) Urine Urobilinogen (<2.0) mg/dL Ur Leukocyte Esterase (Negative) Urine RBC (0-5) /hpf Urine WBC (0-5) /hpf Ur Squamous Epith Cells (0-4) /hpf Urine Mucus (None) /hpf Urine HCG, Qual Not Detected (Not Detectd) - Radiology Data Radiology results: report reviewed, image reviewed Disposition Clinical Impression: Dysfunctional uterine bleeding Disposition: HOME SELF-CARE Instructions (If sedation given, give patient instructions): Abnormal (Dysfunctional) Uterine Bleeding (ED) Additional Instructions: Return to the emergency department with any new, worsening, or concerning symptoms. Take the medroxyprogesterone 3 times daily for 7 days. You can take the naproxen twice daily. This will help with pain and bleeding. Follow-up with your [facility] if you are able to. Prescriptions: Medroxyprogesterone Acetate 20 mg PO TID 7 Days #42 tablet Naproxen Sodium 550 mg PO BID PRN #30 tablet PRN Reason: Pain Is patient prescribed a controlled substance at d/c from ED?: No Referrals: Jozef Givens DO [Primary Care Provider] - 1-2 days Time of Disposition: 11:07
[2023-10-24 10:29] LABS: ALT 25 U/L (4-34); AST 20 U/L (14-36); African American GFR (CKD) >90 (>60 ml/min/1.73 sqM); Albumin 4.1 g/dL (3.5-5.0); Alkaline Phosphatase 68 U/L (38-126); Anion Gap 7 mmol/L; Blood Urea Nitrogen 10 mg/dL (7-17); Calcium 9.9 mg/dL (8.4-10.2); Carbon Dioxide 24 mmol/L (22-30); Chloride 108 mmol/L (98-107); Glucose 79 mg/dL (74-99); Non-African American GFR(CKD) >90 (>60 ml/min/1.73 sqM); Potassium 3.9 mmol/L (3.5-5.1); Sodium 139 mmol/L (137-145); Total Bilirubin 0.5 mg/dL (0.2-1.3); Total Protein 6.8 g/dL (6.3-8.2)
[2023-10-24 10:31] LABS: Appearance,Urine Clear (Clear); Bilirubin,Urine Negative (Negative); Blood,Urine Large (Negative); Color,Urine Light Yellow; Glucose,Urine (UA) Negative (Negative); Ketones,Urine Negative (Negative); Leukocyte Esterase,Urine Negative (Negative); Mucus,Urine Rare /hpf; Nitrite,Urine Negative (Negative); PH, Urine 5.5 (5.0-8.0); Protein,Urine Negative (Negative); RBC,Urine 77 /hpf (0-5); Squamous Epithelial Cell,Urine <1 /hpf (0-4); Urobilinogen,Urine <2.0 mg/dL (<2.0); WBC,Urine <1 /hpf (0-5)
--- NOTE | 2023-10-24 10:38 | US ---
EXAMINATION TYPE: US transvaginal DATE OF EXAM: 10/24/2023 COMPARISON: NONE CLINICAL INDICATION: Female, 33 years old with history of Pelvic pain and heavy bleeding; Pain and he mazin bleeding. TECHNIQUE: Transvaginal (TV). EXAM MEASUREMENTS: Uterus: 8.6 x 4.7 x 4.7 cm Endometrial Stripe: .8 cm Right Ovary: 2.6 x 2.1 x 1.7 cm 1. Uterus: Anteverted Nabothian cysts seen. 2. Endometrium: wnl 3. Right Ovary: wnl 4. Left Ovary: Obscured by overlying bowel gas Spectral, color and waveform doppler imaging shows good arterial and venous flow within the right o vary; there is no evidence for ovarian torsion. 5. Bilateral Adnexa: wnl 6. Posterior cul-de-sac: wnl IMPRESSION: 1. Normal uterus and endometrial stripe. Incidental note is made of multiple small nabothian cysts. 2. Normal right ovary with no torsion. 3. Left ovary obscured by bowel gas. 4. no free fluid in the cul-de-sac
== END 2023-10-24 11:35 | disposition home or self-care (01) ==
LOC: EC 08:49
DX: N93.8 Other specified abnormal uterine and vaginal bleeding (principal)
CPT/HCPCS: 36415; 80053; 84443; 85025; 85610; 85730; 81001; 81025; 93976; 76830; 99284; 96374; 96375; 96361; J2405; J1885